=== PATIENT | female | born 2000 | race American Indian/Alaskan Native ===

== ENCOUNTER 2021-10-16 23:38 | Emergency (ER) | payer OTHER ==
[2021-10-17 00:59] VITALS: BP 153/84
== END 2021-10-17 05:07 | disposition left against medical advice (07) ==
LOC: ED 23:38
DX: R10.10 Upper abdominal pain, unspecified (principal); Z53.21 Procedure and treatment not carried out due to patient leaving prior to being seen by health care provider

== ENCOUNTER 2021-11-01 03:29 | Emergency (ER) | payer OTHER ==
[2021-11-01 04:17] LABS: Hematocrit 38.9 % (30.3-42.9); Hemoglobin 13.2 gm/dl (10.1-14.3); Mean Corpuscular HGB Conc 34 % (30-34); Mean Corpuscular Volume 89 fl (79-97); Platelet Count 308 K/mm3 (140-440); Red Blood Count 4.38 M/mm3 (3.65-5.03); Red Cell Distribution Width 12.4 % (13.2-15.2)
[2021-11-01 04:31] LABS: Bacteria,Urine 2+ /HPF (Negative); Bilirubin,Urine NEG (Negative); Blood,Urine NEG (Negative); Color,Urine Yellow (Yellow); Mucus,Urine FEW /HPF; Protein,Urine <15 mg/dL mg/dL (Negative); Urobilinogen,Urine < 2.0 mg/dL (<2.0)
[2021-11-01 04:34] LABS: Alanine Aminotransferase 19 units/L (7-56); Albumin 4.1 g/dL (3.9-5); BUN/Creatinine Ratio 18; Blood Urea Nitrogen 14 mg/dL (7-17); Calcium 9.6 mg/dL (8.4-10.2); Hemolysis Index 2
--- NOTE | 2021-11-01 04:56 | XRay Report ---
CHEST 2 VIEWS INDICATION / CLINICAL INFORMATION: cHEST PAIN STUDY TIME: 446 COMPARISON: None available. FINDINGS: SUPPORT DEVICES: None. HEART / MEDIASTINUM: No significant abnormality. LUNGS / PLEURA: No significant acute pulmonary or pleural abnormality. No pneumothorax. ADDITIONAL FINDINGS: No significant additional findings. Signer Name: Robert Lopez MD Signed: 11/01/2021 4:51 AM Workstation Name: [id number]
[2021-11-01 05:11] LABS: Basophils % (Manual) 0 % (0.0-1.8); Total Cells Counted 100
[2021-11-01 05:12] LABS: Platelet Estimate Consistent w Auto; RBC Morphology Normal
[2021-11-01] MEDS ORDERED: ALUM-MAG HYDROXIDE-SIMETHICONE 200-200-20MG/5ML ORAL LIQD 30 ML PO ONE (08:55)
[2021-11-01] MEDS ORDERED: LIDOCAINE VISCOUS 2% 15 ML ORAL LIQD PO ONE (08:55)
--- NOTE | 2021-11-01 09:00 | Emergency Department Report ---
ED General Adult HPI - General Chief complaint: Chest Pain Stated complaint: CHEST PAIN Time Seen by Provider: 11/01/21 08:45 Source: patient Mode of arrival: Ambulatory Limitations: No Limitations - History of Present Illness Initial comments: 21-year-old female who denies any significant past medical history presents to the ER with complaints of substernal chest pain and epigastric discomfort. Patient states that she is been having the symptoms off and on for 1 month. She states that it flared up this morning around 230. She states that the pain starts in the substernal chest area and sometimes radiates down into her epigastric area or vice versa. She described as a crampy pain. She states that the pain seems to get better when she stands up and move around and drinks water. She is unable to describe any worsening factors. She states that she did have some shortness of breath this morning with the pain. She denies any nausea, vomiting, bowel changes, URI symptoms or cough, fever or chills. She reports no lower extremity swelling or calf pain. She states that she did go to urgent care a couple weeks ago and prescribed omeprazole which she took for about a week and then stopped. She denies any ill contacts or recent travel. MD Complaint: Chest pain/epigastric pain -: month(s) (1) - Related Data Previous Rx's Medication Instructions Recorded Last Taken Type Famotidine [Pepcid] 20 mg PO BID #60 tablet 11/01/21 Unknown Rx Omeprazole 40 mg PO DAILY #30 11/01/21 Unknown Rx Allergies Allergy/AdvReac Type Severity Reaction Status Date / Time No Known Allergies Allergy Verified 10/17/21 01:02 ED Review of Systems ROS: Stated complaint: CHEST PAIN Other details as noted in HPI Comment: All other systems reviewed and negative Constitutional: denies: chills, fever Eyes: denies: eye pain, eye discharge, vision change ENT: denies: ear pain, throat pain, dental pain, hearing loss, epistaxis, congestion Respiratory: shortness of breath. denies: cough, wheezing Cardiovascular: chest pain Gastrointestinal: abdominal pain. denies: nausea, vomiting, diarrhea, constipation, hematemesis, melena, hematochezia Genitourinary: denies: urgency, dysuria, frequency, hematuria, discharge, abnormal menses, dyspareunia Musculoskeletal: denies: back pain, joint swelling, arthralgia Skin: denies: rash, lesions, change in color, change in hair/nails, pruritus Neurological: denies: headache, weakness, paresthesias, confusion, abnormal gait Psychiatric: denies: anxiety, depression, auditory hallucinations, visual hallucinations, homicidal thoughts, suicidal thoughts Hematological/Lymphatic: denies: easy bleeding, easy bruising, swollen glands ED Past Medical Hx - Medications Home Medications: Home Medications Medication Instructions Recorded Confirmed Last Taken Type Famotidine [Pepcid] 20 mg PO BID #60 tablet 11/01/21 Unknown Rx Omeprazole 40 mg PO DAILY #30 11/01/21 Unknown Rx ED Physical Exam - General Limitations: No Limitations General appearance: alert, in no apparent distress, obese - Neck Neck exam: Present: normal inspection, full ROM. Absent: meningismus - Respiratory Respiratory exam: Present: normal lung sounds bilaterally. Absent: respiratory distress, wheezes, rales, rhonchi, stridor - Cardiovascular Cardiovascular Exam: Present: regular rate, normal rhythm, normal heart sounds - GI/Abdominal GI/Abdominal exam: Present: soft. Absent: distended, tenderness, guarding, rebound - Extremities Exam Extremities exam: Present: normal inspection, full ROM - Neurological Exam Neurological exam: Present: alert, oriented X3, CN II-XII intact, normal gait - Psychiatric Psychiatric exam: Present: normal affect, normal mood - Skin Skin exam: Present: intact ED Course Vital Signs 11/01/21 11/01/21 11/01/21 03:34 09:12 09:16 Temperature 98.7 F Pulse Rate 81 Respiratory 18 Rate Blood Pressure 153/111 124/68 O2 Sat by Pulse 98 100 100 Oximetry ED Medical Decision Making - Lab Data Result diagrams: 11/01/21 03:51 11/01/21 03:51 Laboratory Results - last 24 hr 11/01/21 11/01/21 11/01/21 03:51 03:51 03:51 WBC 8.8 RBC 4.38 Hgb 13.2 Hct 38.9 MCV 89 MCH 30 MCHC 34 RDW 12.4 L Plt Count 308 Lymph % (Auto) Roller Painter Lymph # (Auto) Roller Painter Add Manual Diff Complete Total Counted 100 Seg Neutrophils % Roller Painter Seg Neuts % (Manual) 28.0 L Band Neutrophils % 0 Lymphocytes % (Manual) 64.0 H Reactive Lymphs % (Man) 0 Monocytes % (Manual) 6.0 Eosinophils % (Manual) 2.0 Basophils % (Manual) 0 Metamyelocytes % 0 Myelocytes % 0 Promyelocytes % 0 Blast Cells % 0 Nucleated RBC % Not Reportable Seg Neutrophils # Man 2.5 Band Neutrophils # 0.0 Lymphocytes # (Manual) 5.6 H Abs React Lymphs (Man) 0.0 Monocytes # (Manual) 0.5 Eosinophils # (Manual) 0.2 Basophils # (Manual) 0.0 Metamyelocytes # 0.0 Myelocytes # 0.0 Promyelocytes # 0.0 Blast Cells # 0.0 WBC Morphology Not Reportable Hypersegmented Neuts Not Reportable Hyposegmented Neuts Not Reportable Hypogranular Neuts Not Reportable Smudge Cells Not Reportable Toxic Granulation Not Reportable Toxic Vacuolation Not Reportable Dohle Bodies Not Reportable Pelger-Huet Anomaly Not Reportable Yaniv Rods Not Reportable Platelet Estimate Consistent w auto Clumped Platelets Not Reportable Plt Clumps, EDTA Not Reportable Large Platelets Not Reportable Giant Platelets Not Reportable Platelet Satelliting Not Reportable Plt Morphology Comment Not Reportable RBC Morphology Normal Dimorphic RBCs Not Reportable Polychromasia Not Reportable Hypochromasia Not Reportable Poikilocytosis Not Reportable Anisocytosis Not Reportable Microcytosis Not Reportable Macrocytosis Not Reportable Spherocytes Not Reportable Pappenheimer Bodies Not Reportable Sickle Cells Not Reportable Target Cells Not Reportable Tear Drop Cells Not Reportable Ovalocytes Not Reportable Helmet Cells Not Reportable [place] Bodies Not Reportable [place] Rings Not Reportable Cotter Cells Not Reportable Bite Cells Not Reportable Crenated Cell Not Reportable Elliptocytes Not Reportable Acanthocytes (Spur) Not Reportable Rouleaux Not Reportable Hemoglobin C Crystals Not Reportable Schistocytes Not Reportable Malaria parasites Not Reportable [place] Bodies Not Reportable Hem Pathologist Commnt No Sodium 138 Potassium 4.1 Chloride 102.5 Carbon Dioxide 23 Anion Gap 17 BUN 14 Creatinine 0.8 Estimated GFR > 60 BUN/Creatinine Ratio 18 Glucose 101 H Calcium 9.6 Total Bilirubin 0.20 AST 24 ALT 19 Alkaline Phosphatase 77 Total Protein 6.9 Albumin 4.1 Albumin/Globulin Ratio 1.5 Lipase 28 HCG, Qual Negative Urine Color Urine Turbidity Urine pH Ur Specific [place] Urine Protein Urine Glucose (UA) Urine Ketones Urine Blood Urine Nitrite Urine Bilirubin Urine Urobilinogen Ur Leukocyte Esterase Urine WBC (Auto) Urine RBC (Auto) U Epithel Cells (Auto) Urine Bacteria (Auto) Urine Mucus Urine Yeast (Budding) 11/01/21 04:03 WBC RBC Hgb Hct MCV MCH MCHC RDW Plt Count Lymph % (Auto) Lymph # (Auto) Add Manual Diff Total Counted Seg Neutrophils % Seg Neuts % (Manual) Band Neutrophils % Lymphocytes % (Manual) Reactive Lymphs % (Man) Monocytes % (Manual) Eosinophils % (Manual) Basophils % (Manual) Metamyelocytes % Myelocytes % Promyelocytes % Blast Cells % Nucleated RBC % Seg Neutrophils # Man Band Neutrophils # Lymphocytes # (Manual) Abs React Lymphs (Man) Monocytes # (Manual) Eosinophils # (Manual) Basophils # (Manual) Metamyelocytes # Myelocytes # Promyelocytes # Blast Cells # WBC Morphology Hypersegmented Neuts Hyposegmented Neuts Hypogranular Neuts Smudge Cells Toxic Granulation Toxic Vacuolation Dohle Bodies Pelger-Huet Anomaly Yaniv Rods Platelet Estimate Clumped Platelets Plt Clumps, EDTA Large Platelets Giant Platelets Platelet Satelliting Plt Morphology Comment RBC Morphology Dimorphic RBCs Polychromasia Hypochromasia Poikilocytosis Anisocytosis Microcytosis Macrocytosis Spherocytes Pappenheimer Bodies Sickle Cells Target Cells Tear Drop Cells Ovalocytes Helmet Cells [place] Bodies [place] Rings Clair Cells Bite Cells Crenated Cell Elliptocytes Acanthocytes (Spur) Rouleaux Hemoglobin C Crystals Schistocytes Malaria parasites [place] Bodies Hem Pathologist Commnt Sodium Potassium Chloride Carbon Dioxide Anion Gap BUN Creatinine Estimated GFR BUN/Creatinine Ratio Glucose Calcium Total Bilirubin AST ALT Alkaline Phosphatase Total Protein Albumin Albumin/Globulin Ratio Lipase HCG, Qual Urine Color Yellow Urine Turbidity Cloudy Urine pH 5.0 Ur Specific [place] 1.020 Urine Protein <15 mg/dl Urine Glucose (UA) Neg Urine Ketones Neg Urine Blood Neg Urine Nitrite Neg Urine Bilirubin Neg Urine Urobilinogen < 2.0 Ur Leukocyte Esterase Sm Urine WBC (Auto) 3.0 Urine RBC (Auto) 8.0 U Epithel Cells (Auto) 36.0 H Urine Bacteria (Auto) 2+ Urine Mucus Few Urine Yeast (Budding) 2+ - EKG Data EKG shows normal: sinus rhythm Rate: normal (82) - EKG Data Interpretation: normal EKG - Radiology Data Radiology results: report reviewed Patient: ANAMARIA CARMONA MR#: [id number] : 2000 Acct:[id number] Age/Sex: 21 / F ADM Date: 11/01/21 Loc: ED Attending Dr: Ordering Physician: MAYTE SUNSHINE MD Date of Service: 11/01/21 Procedure(s): XR chest routine 2V Accession Number(s): [id number] cc: MAYTE SUNSHINE MD Fluoro Time In Minutes: CHEST 2 VIEWS INDICATION / CLINICAL INFORMATION: cHEST PAIN STUDY TIME: 446 COMPARISON: None available. FINDINGS: SUPPORT DEVICES: None. HEART / MEDIASTINUM: No significant abnormality. LUNGS / PLEURA: No significant acute pulmonary or pleural abnormality. No pneumothorax. ADDITIONAL FINDINGS: No significant additional findings. Signer Name: Robert Lopez MD Signed: 11/01/2021 4:51 AM Workstation Name: [id number] Transcribed By: BRENDEN Dictated By: Robert Lopez MD Electronically Authenticated By: Robert Lopez MD Signed Date/Time: 11/01/21450 DD/ 0 TD/TT: - Medical Decision Making 21-year-old female who denies any significant past medical history presents to the ER with complaints of substernal chest pain and epigastric discomfort. Patient states that she is been having the symptoms off and on for 1 month. She states that it flared up this morning around 230. She states that the pain starts in the substernal chest area and sometimes radiates down into her epigastric area or vice versa. She described as a crampy pain. She states that the pain seems to get better when she stands up and move around and drinks water. She is unable to describe any worsening factors. She states that she d id have some shortness of breath this morning with the pain. She denies any nausea, vomiting, bowel changes, URI symptoms or cough, fever or chills. She reports no lower extremity swelling or calf pain. She states that she did go to urgent care a couple weeks ago and prescribed omeprazole which she took for about a week and then stopped. She denies any ill contacts or recent travel. 0925: Patient is currently resting comfortably in the room. She is not in any acute pain or respiratory distress. She is not toxic or ill-appearing. She is awake alert oriented x3, mentally stable and neurologically intact with a normal gait. Patient chest x-ray today shows nothing acute. EKG showed normal sinus rhythm without any STEMI or acute ischemic changes or dysrhythmias. Labs were reviewed and showed no acute abnormality. Other than obesity patient has no other risk factors for coronary artery disease and she currently has a PERC score of 0. A repeat value shows much improvement of her blood pressure and the remaining vitals are all stable. Suspect the patient symptoms could be related to gastritis/reflux disease at this time. I do not suspect acute coronary syndrome/unstable angina, PE, acute intra-abdominal etiology or any other emergent conditions warranting additional testing or admission at this time. Discussed all lab results with patient as well as suspected diagnosis and treatment plan. She will be given referral to PCP and GI. She expressed understanding of all instructions and agree with plan. She understands to return to the ER if worse. Critical care attestation.: If time is entered above; I have spent that time in minutes in the direct care of this critically ill patient, excluding procedure time. ED Disposition Clinical Impression: Nonspecific chest pain, GERD (gastroesophageal reflux disease) Disposition: 01 HOME / SELF CARE / HOMELESS Is pt being admited?: No Does the pt Need Aspirin: No Condition: Stable Instructions: Food Choices for Gastroesophageal Reflux Disease, Adult, Nonspecific Chest Pain, Adult, Gastroesophageal Reflux Disease, Adult, Ea sy-to-Read Additional Instructions: I recommend that you continue taking the omeprazole daily, a new prescription will be provided for you at discharge. You can take the Pepcid as needed for any flareups. I do recommend that you follow the food choices to avoid which will be listed on your discharge instructions. I do recommend further evaluation with either PCP or hardware installer. A primary care doctor and a gastroenterology group will be listed for your note this discharge instruction. If your symptoms worsens in any way return to the ER. Prescriptions: Omeprazole 40 mg PO DAILY #30 Famotidine [Pepcid] 20 mg PO BID #60 tablet Referrals: ROSANA HARVEY MD [Staff Physician] - 3-5 Days TANI BLANCO MD [Staff Physician] - 3-5 Days [facility] [Provider Group] - 3-5 Days Forms: Work/School Release Form(ED) Time of Disposition: 09:03
[2021-11-01 10:16] VITALS: BP 118/78
--- NOTE | 2021-11-02 12:12 | Electrocardiograph Report ---
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
--- NOTE | 2021-11-04 09:48 | Electrocardiograph Report ---
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
== END 2021-11-01 10:15 | disposition home or self-care (01) ==
LOC: ED 03:29
DX: R07.9 Chest pain, unspecified (principal); K21.9 Gastro-esophageal reflux disease without esophagitis
CPT/HCPCS: 36415; 71046; 80053; 81001; 83690; 84703; 85007; 85025; 93005; 99283; 99284